=== PATIENT | female | born 1985 | race Caucasian/White ===

== ENCOUNTER 2019-04-12 20:29 | Emergency (ER) | payer MEDICAID, OTHER ==
[~2019-04-12] VITALS: Ht 154.9 cm; Wt 68.2 kg
[2019-04-12 20:51] LABS: GLUCOSE,POINT OF CARE 355 MG/DL (70-110)
[2019-04-12] MEDS ORDERED: IBUPROFEN 800 MG TABLET PO ONE (21:30)
[2019-04-12 22:13] VITALS: BP 145/89
== END 2019-04-12 22:10 | disposition home or self-care (01) ==
LOC: EMS 20:30
DX: S93.401A Sprain of unspecified ligament of right ankle, initial encounter (principal); E11.9 Type 2 diabetes mellitus without complications; Z98.51 Tubal ligation status; X58.XXXA Exposure to other specified factors, initial encounter; Y93.89 Activity, other specified; Y92.89 Other specified places as the place of occurrence of the external cause; Y99.8 Other external cause status